=== PATIENT | female | born 1965 | race Caucasian/White ===

== ENCOUNTER → 2019-01-02 | Outpatient (CLI) | payer OTHER ==
[2019-01-02 21:00] LABS: Protein, Urine Random 16.6 mg/dL (0.0-11.9)
== END | disposition home or self-care (01) ==
LOC: LAB 18:51 → LAB SHORT 18:51
PROVIDERS: Internal Medicine
DX: N18.3 Chronic kidney disease, stage 3 (moderate) (principal)
CPT/HCPCS: 82570; 84156

== ENCOUNTER 2020-10-31 12:07 | Emergency (ER) | payer OTHER ==
[~2020-10-31] VITALS: Ht 160 cm; Wt 74.8 kg
[2020-10-31] MEDS ORDERED: ACYCLOVIR400 MG PO (15:00)
[2020-10-31] MEDS ORDERED: FLUO10 PO (15:00)
[2020-10-31] MEDS ORDERED: IMITREX100 MG PO (15:01)
[2020-10-31] MEDS ORDERED: Prinivil10 MG PO (15:03)
[2020-10-31] MEDS ORDERED: Lamotrigine25 MG PO (15:03)
[2020-10-31] MEDS ORDERED: OMEP20ER PO (15:04)
[2020-10-31] MEDS ORDERED: ALBU90OI INH (15:04)
[2020-10-31] MEDS ORDERED: AMLO5 PO (15:05)
[2020-10-31] MEDS ORDERED: Hydroxyzine HCl50 MG PO (15:06)
[2020-10-31] MEDS ORDERED: LAMICTAL200 MG PO (15:07)
[2020-10-31] MEDS ORDERED: IBU800 MG PO (15:16)
[2020-10-31] MEDS ORDERED: Percocet 5-3251 EACH PO (15:16)
== END 2020-10-31 16:40 | disposition home or self-care (01) ==
LOC: ER 12:07
DX: S52.122A Displaced fracture of head of left radius, initial encounter for closed fracture (principal); Z79.899 Other long term (current) drug therapy; X50.1XXA Overexertion from prolonged static or awkward postures, initial encounter
CPT/HCPCS: 29125; 73030; 73070; 73200; 96374-59; 96376-59; 99283-25; A9270; J3010

== ENCOUNTER 2020-11-24 00:36 | Day surgery (SDC) | payer OTHER ==
[~2020-11-24] VITALS: Wt 76.4 kg
[~2020-11-24 00:36] MED LIST: ACYCLOVIR400 MG PO; ALBU90OI INH; AMLO5 PO; FLUO10 PO; Hydroxyzine HCl50 MG PO; IBU800 MG PO; IMITREX100 MG PO; LAMICTAL200 MG PO; Lamotrigine25 MG PO; OMEP20ER PO; Percocet 5-3251 EACH PO; Prinivil10 MG PO
[2020-11-24 14:51] LABS: BASOPHILS ABSOLUTE AUTO 0.03 K/mm3 (0.00-0.23); BASOPHILS PERCENT AUTO 0 % (0-2); EOSINOPHILS ABSOLUTE AUTO 0.19 K/mm3 (0.00-0.68); EOSINOPHILS PERCENT AUTO 2 % (0-6); Hematocrit 29.5 % (33.0-51.0); Hemoglobin 9.5 g/dL (11.5-16.0); IMMATURE GRAN ABSOLUTE AUTO 0.08 K/mm3 (0.00-0.10); IMMATURE GRAN PERCENT AUTO 1 % (0-1); LYMPHOCYTES ABSOLUTE AUTO 1.38 K/mm3 (0.84-5.20); LYMPHOCYTES PERCENT AUTO 16 % (21-46); MONOCYTES ABSOLUTE AUTO 0.77 K/mm3 (0.16-1.47); MONOCYTES PERCENT AUTO 9 % (4-13); Mean Corpuscular HGB 28.7 pg (26.0-34.0); Mean Corpuscular HGB Conc 32.2 g/dL (31.5-36.5); Mean Corpuscular Volume 89 fL (80-100); Mean Platelet Volume 9.2 fL (9.1-12.4); NEUTROPHILS ABSOLUTE AUTO 6.03 K/mm3 (1.96-9.15); NEUTROPHILS PERCENT AUTO 71 % (41-73); Platelet Count 371 K/mm3 (150-400); RDW Coefficient Variation 14.1 % (11.7-14.2); RDW Standard Deviation 45.3 fL (35.1-46.3); Red Blood Cell Count 3.31 M/mm3 (3.80-5.20); White Blood Cell Count 8.48 K/mm3 (4.00-11.30)
[2020-11-24] MEDS ORDERED: OXYC10TA19 PO (15:09)
[2020-11-24] MEDS ORDERED: ASPI325 PO (15:12)
[2020-11-24] MEDS ORDERED: PROM25 PO (15:12)
[2020-11-24 15:25] LABS: Alanine Aminotransfer (ALT/SGP 50 U/L (12-78); Albumin/Globulin Ratio 0.8 (0.8-1.8); Alk Phos 273 U/L (50-136); Anion Gap 7 mmol/L (6-16); Aspartate Aminotrans (AST/SGOT 21 U/L (12-37); Bilirubin, Total 0.3 mg/dL (0.1-1.0); Blood Urea Nitrogen 10 mg/dL (8-24); Bun/Creatinine Ratio 9.6 (12.0-20.0); CO2, Blood 26 mmol/L (21-32); Calcium, Blood 8.7 mg/dL (8.5-10.1); Chloride, Blood 105 mmol/L (98-108); Creatinine, Blood 1.04 mg/dL (0.40-1.00); Globulin, Blood 3.8 g/dL (2.2-4.0); Glomerular Filtration Rate 58 (60-); Glucose, Blood 92 mg/dL (70-99); Potassium, Blood 3.7 mmol/L (3.5-5.5); Sodium, Blood 138 mmol/L (136-145); Total Protein, Blood 6.8 g/dL (6.4-8.2); Vancomycin, Trough 13.4 ug/mL (5.0-10.0)
== END 2020-11-24 17:41 | disposition home or self-care (01) ==
LOC: ATC 00:36
PROVIDERS: Internal Medicine Infectious Disease
DX: M00.9 Pyogenic arthritis, unspecified (principal); Z88.5 Allergy status to narcotic agent
CPT/HCPCS: 80053; 80202; 85025; 85651; 86140; 96365; 96366; J3370; J7050

== ENCOUNTER 2020-11-25 08:54 | Day surgery (SDC) | payer OTHER ==
[~2020-11-25 08:54] MED LIST changes: +ASPI325 PO; +OXYC10TA19 PO; +PROM25 PO
== END 2020-11-25 17:22 | disposition home or self-care (01) ==
LOC: ATC 08:54
DX: M00.022 Staphylococcal arthritis, left elbow (principal); B95.62 Methicillin resistant Staphylococcus aureus infection as the cause of diseases classified elsewhere
CPT/HCPCS: 96365; 96366; J3370; J7050

== ENCOUNTER 2020-11-26 00:42 | Day surgery (SDC) | payer OTHER ==
[2020-11-26 15:27] LABS: Creatinine, Blood 1.42 mg/dL (0.40-1.00)
== END 2020-11-26 17:32 | disposition home or self-care (01) ==
LOC: ATC 00:42
PROVIDERS: Internal Medicine Infectious Disease
DX: M00.022 Staphylococcal arthritis, left elbow (principal); B95.62 Methicillin resistant Staphylococcus aureus infection as the cause of diseases classified elsewhere
CPT/HCPCS: 36415; 80202; 82565; 96365; 96366; J3370; J7050

== ENCOUNTER 2020-11-27 00:36 | Day surgery (SDC) | payer OTHER | END 2020-11-27 16:21 | disposition home or self-care (01) | LOC: ATC 00:36 | DX: M00.022 Staphylococcal arthritis, left elbow (principal); B95.62 Methicillin resistant Staphylococcus aureus infection as the cause of diseases classified elsewhere; Z88.5 Allergy status to narcotic agent; Z95.828 Presence of other vascular implants and grafts | CPT/HCPCS: 96365; 96366; J3370; J7050 ==

== ENCOUNTER 2020-11-29 00:24 | Day surgery (SDC) | payer OTHER | END 2020-11-30 23:10 | disposition home or self-care (01) | LOC: ATC 00:24 | DX: M00.022 Staphylococcal arthritis, left elbow (principal); B95.62 Methicillin resistant Staphylococcus aureus infection as the cause of diseases classified elsewhere; Z88.5 Allergy status to narcotic agent; Z95.828 Presence of other vascular implants and grafts | CPT/HCPCS: J3370; J7050 ==

== ENCOUNTER 2020-11-30 00:07 | Day surgery (SDC) | payer OTHER | END 2020-11-30 23:10 | disposition home or self-care (01) | LOC: ATC 00:07 | DX: M00.022 Staphylococcal arthritis, left elbow (principal); B95.62 Methicillin resistant Staphylococcus aureus infection as the cause of diseases classified elsewhere; Z88.5 Allergy status to narcotic agent | CPT/HCPCS: J3370; J7050 ==

== ENCOUNTER 2020-12-10 02:07 | Day surgery (SDC) | payer OTHER | END 2020-12-10 15:40 | disposition home or self-care (01) | LOC: ATC 02:07 | DX: M00.0 Staphylococcal arthritis and polyarthritis (principal); B95.62 Methicillin resistant Staphylococcus aureus infection as the cause of diseases classified elsewhere; Z98.890 Other specified postprocedural states | CPT/HCPCS: 96365; 96366; J3370; J7050 ==

== ENCOUNTER 2020-12-11 01:52 | Day surgery (SDC) | payer OTHER | END 2020-12-11 15:09 | disposition home or self-care (01) | LOC: ATC 01:52 | DX: M00.0 Staphylococcal arthritis and polyarthritis (principal); B95.7 Other staphylococcus as the cause of diseases classified elsewhere | CPT/HCPCS: 96365; 96366; J3370; J7050 ==

== ENCOUNTER 2020-12-12 00:43 | Day surgery (SDC) | payer OTHER ==
[2020-12-12 14:24] LABS: Vancomycin, Trough 37.1 ug/mL (5.0-10.0)
--- NOTE | 2020-12-12 14:30 | NUR ---
REC'D A CALL FROM DWIGHT, PHARMACIST. PT'S VANCO LEVEL AND CREATININE ARE ELEVATED. HOLD DOSE TODAY AND RE DRAW LABS TOMORROW. PT ENCOURAGED TO DRINK WATER AND WILL RETURN TOMORROW FOR ANOTHER LAB AND POSSIBLE DOSE BASED ON HER LAB VALUES.
== END 2020-12-12 14:30 | disposition home or self-care (01) ==
LOC: ATC 00:43
PROVIDERS: Internal Medicine Infectious Disease
DX: M00.022 Staphylococcal arthritis, left elbow (principal); B95.62 Methicillin resistant Staphylococcus aureus infection as the cause of diseases classified elsewhere; Z98.890 Other specified postprocedural states; Z88.5 Allergy status to narcotic agent
CPT/HCPCS: 36415; 80202; 82565; 99211

== ENCOUNTER 2020-12-13 13:23 | Day surgery (SDC) | payer OTHER ==
[2020-12-13 14:07] LABS: Creatinine, Blood 2.98 mg/dL (0.40-1.00); Vancomycin, Random 24.1 ug/mL
--- NOTE | 2020-12-13 14:24 | NUR ---
SPOKE WITH PHARMACIST, DWIGHT, RE: VANCO TROUGH 24 AND CREAT 2.98. HOLD VANCO TODAY, REDRAW RANDOM VANCO LEVEL AND CREAT TOMORROWPER DWIGHT. INSTRUCTED PT ON RESULTS, SHE VOICED UNDERSTANDING. SHE WILL RETURN TOMORROW.
== END 2020-12-13 14:27 | disposition home or self-care (01) ==
LOC: ATC 13:23
PROVIDERS: Internal Medicine Infectious Disease
DX: M00.022 Staphylococcal arthritis, left elbow (principal); B95.62 Methicillin resistant Staphylococcus aureus infection as the cause of diseases classified elsewhere; Z88.5 Allergy status to narcotic agent; Z95.828 Presence of other vascular implants and grafts
CPT/HCPCS: 36416; 80202; 82565; 96523

== ENCOUNTER 2020-12-14 00:18 | Day surgery (SDC) | payer OTHER ==
[2020-12-14 16:21] LABS: Creatinine, Blood 2.51 mg/dL (0.40-1.00); Vancomycin, Random 16.1 ug/mL
--- NOTE | 2020-12-14 17:54 | NUR ---
PT VERY AGITATED ON ADMIT TO ROOM. PT CRYING AND VERY AGITATED. MOVING AROUND IN THE CHAIR. PT WENT TO BUD TO A DR APPT AND SHE WAS NOT ON THE DR'S BOOKS. BROTHER VERY ANGRY WITH THIS AND TOOK IT OUT ON PT.
== END 2020-12-14 17:41 | disposition home or self-care (01) ==
LOC: ATC 00:18
PROVIDERS: Internal Medicine Infectious Disease
DX: M00.022 Staphylococcal arthritis, left elbow (principal); B95.62 Methicillin resistant Staphylococcus aureus infection as the cause of diseases classified elsewhere; Z88.5 Allergy status to narcotic agent; Z96.622 Presence of left artificial elbow joint
CPT/HCPCS: 80202; 82565; 96365; J3370

== ENCOUNTER 2020-12-15 00:44 | Day surgery (SDC) | payer OTHER ==
[2020-12-15 15:04] LABS: Vancomycin, Random 19.3 ug/mL
--- NOTE | 2020-12-15 15:32 | NUR ---
PER PHARMACIST MARISA, NO DOSE OF VANCO FOR TODAY. WILL RECIEVE NEW ORDER FOR VANCO RANDOM TOMORROW.
== END 2020-12-15 15:18 | disposition home or self-care (01) ==
LOC: ATC 00:44
PROVIDERS: Internal Medicine Infectious Disease
DX: M86.171 Other acute osteomyelitis, right ankle and foot (principal); M00.9 Pyogenic arthritis, unspecified; I10 Essential (primary) hypertension; E11.621 Type 2 diabetes mellitus with foot ulcer; L97.519 Non-pressure chronic ulcer of other part of right foot with unspecified severity; Z88.1 Allergy status to other antibiotic agents; Z88.8 Allergy status to other drugs, medicaments and biological substances; Z79.4 Long term (current) use of insulin; Z79.899 Other long term (current) drug therapy
CPT/HCPCS: 36415; 80202; 82565

== ENCOUNTER 2020-12-16 00:19 | Day surgery (SDC) | payer OTHER ==
[2020-12-16 13:53] LABS: BASOPHILS ABSOLUTE AUTO 0.06 K/mm3 (0.00-0.23); BASOPHILS PERCENT AUTO 1 % (0-2); EOSINOPHILS ABSOLUTE AUTO 0.41 K/mm3 (0.00-0.68); EOSINOPHILS PERCENT AUTO 10 % (0-6); Hematocrit 33.9 % (33.0-51.0); Hemoglobin 10.9 g/dL (11.5-16.0); IMMATURE GRAN ABSOLUTE AUTO 0.02 K/mm3 (0.00-0.10); IMMATURE GRAN PERCENT AUTO 1 % (0-1); LYMPHOCYTES ABSOLUTE AUTO 1.35 K/mm3 (0.84-5.20); LYMPHOCYTES PERCENT AUTO 31 % (21-46); MONOCYTES ABSOLUTE AUTO 0.44 K/mm3 (0.16-1.47); MONOCYTES PERCENT AUTO 10 % (4-13); Mean Corpuscular HGB 28.5 pg (26.0-34.0); Mean Corpuscular HGB Conc 32.2 g/dL (31.5-36.5); Mean Corpuscular Volume 89 fL (80-100); Mean Platelet Volume 9.6 fL (9.1-12.4); NEUTROPHILS ABSOLUTE AUTO 2.04 K/mm3 (1.96-9.15); NEUTROPHILS PERCENT AUTO 47 % (41-73); Platelet Count 319 K/mm3 (150-400); RDW Coefficient Variation 14.5 % (11.7-14.2); RDW Standard Deviation 46.3 fL (35.1-46.3); Red Blood Cell Count 3.83 M/mm3 (3.80-5.20); White Blood Cell Count 4.32 K/mm3 (4.00-11.30)
[2020-12-16 14:09] LABS: Alanine Aminotransfer (ALT/SGP 13 U/L (12-78); Albumin, Blood 3.4 g/dL (3.4-5.0); Albumin/Globulin Ratio 0.9 (0.8-1.8); Alk Phos 154 U/L (50-136); Anion Gap 9 mmol/L (6-16); Aspartate Aminotrans (AST/SGOT 5 U/L (12-37); Bilirubin, Total 0.2 mg/dL (0.1-1.0); Blood Urea Nitrogen 21 mg/dL (8-24); CO2, Blood 18 mmol/L (21-32); Calcium, Blood 8.5 mg/dL (8.5-10.1); Chloride, Blood 114 mmol/L (98-108); Creatinine, Blood 1.75 mg/dL (0.40-1.00); Globulin, Blood 3.7 g/dL (2.2-4.0); Glomerular Filtration Rate 32 (60-); Glucose, Blood 116 mg/dL (70-99); Potassium, Blood 3.9 mmol/L (3.5-5.5); Sodium, Blood 141 mmol/L (136-145); Total Protein, Blood 7.1 g/dL (6.4-8.2); Vancomycin, Trough 11.1 ug/mL (5.0-10.0)
== END 2020-12-16 16:18 | disposition home or self-care (01) ==
LOC: ATC 00:19
PROVIDERS: Internal Medicine Infectious Disease
DX: M86.171 Other acute osteomyelitis, right ankle and foot (principal); M00.9 Pyogenic arthritis, unspecified; I10 Essential (primary) hypertension; E11.621 Type 2 diabetes mellitus with foot ulcer; L97.519 Non-pressure chronic ulcer of other part of right foot with unspecified severity; Z88.1 Allergy status to other antibiotic agents; Z88.5 Allergy status to narcotic agent; Z88.8 Allergy status to other drugs, medicaments and biological substances; Z79.4 Long term (current) use of insulin; Z79.899 Other long term (current) drug therapy
CPT/HCPCS: 80053; 80202; 85025; 85651; 86140; 96365; 96366; J3370; J7050

== ENCOUNTER 2020-12-19 13:03 | Day surgery (SDC) | payer OTHER ==
[2020-12-19] MEDS ORDERED: VANCOMYCIN HCL1 G1 IV (13:57)
== END 2020-12-19 15:10 | disposition home or self-care (01) ==
LOC: ATC 13:03
DX: A41.9 Sepsis, unspecified organism (principal); A49.02 Methicillin resistant Staphylococcus aureus infection, unspecified site
CPT/HCPCS: 96365; 96366; J3370; J7050

== ENCOUNTER 2020-12-20 12:59 | Day surgery (SDC) | payer OTHER ==
[~2020-12-20 12:59] MED LIST changes: +VANCOMYCIN HCL1 G1 IV
--- NOTE | 2020-12-20 14:38 | NUR ---
PTS BP REMAINS HIGH. ASKED PT IF SHE COULD CALL HER PCP AND PT STATED SHE HAS NOT GOTTEN ONE YET. PT STATES SHE HAS NOT FELT WELL SINCE LAST WED. STATES SHE HAS A BAD HEADACHE AND ALL SHE WANTS TO DO IS SLEEP. TALKED WITH PT REGARDING GOING TO ER OR URGENT CARE IF SHE DOES NOT GET TO FEELING BETTER.
== END 2020-12-20 14:38 | disposition home or self-care (01) ==
LOC: ATC 12:59
DX: A41.9 Sepsis, unspecified organism (principal)
CPT/HCPCS: 96365; J3370

== ENCOUNTER 2020-12-22 03:40 | Day surgery (SDC) | payer OTHER | END 2020-12-22 14:56 | disposition home or self-care (01) | LOC: ATC 03:40 | DX: M00.022 Staphylococcal arthritis, left elbow (principal); B95.62 Methicillin resistant Staphylococcus aureus infection as the cause of diseases classified elsewhere; Z88.5 Allergy status to narcotic agent; Z95.828 Presence of other vascular implants and grafts | CPT/HCPCS: 96365; J3370 ==

== ENCOUNTER 2020-12-23 03:29 | Day surgery (SDC) | payer OTHER ==
--- NOTE | 2020-12-23 13:45 | NUR ---
TALKED WITH PT RE: HER ELEVATED BP AND RISKS ASSOCIATED WITH ELEVATED BP. sHE STATES HER BP HAS BEEN RUNNING HIGH RECENTLY. SHE REPORTS SHE FORGOT TO TAKE HER BP MEDS THIS MORNING. SHE ALSO REPORTS INCREASED STRESS THIS WEEK, HER FATHER'S CELE[employer] OF LIFE IS PLANNED FOR THIS COMING MONDAY.
== END 2020-12-23 14:26 | disposition home or self-care (01) ==
LOC: ATC 03:29
DX: M00.022 Staphylococcal arthritis, left elbow (principal); B95.62 Methicillin resistant Staphylococcus aureus infection as the cause of diseases classified elsewhere; Z88.5 Allergy status to narcotic agent
CPT/HCPCS: 96365; J3370

== ENCOUNTER 2020-12-24 00:20 | Day surgery (SDC) | payer OTHER ==
[2020-12-24 14:00] LABS: Creatinine, Blood 1.66 mg/dL (0.40-1.00); Vancomycin, Trough 13.4 ug/mL (5.0-10.0)
== END 2020-12-24 15:45 | disposition home or self-care (01) ==
LOC: ATC 00:20
PROVIDERS: Internal Medicine Infectious Disease
DX: M00.022 Staphylococcal arthritis, left elbow (principal); B95.62 Methicillin resistant Staphylococcus aureus infection as the cause of diseases classified elsewhere; Z88.5 Allergy status to narcotic agent
CPT/HCPCS: 80202; 82565; 96365; J3370

== ENCOUNTER 2020-12-25 00:17 | Day surgery (SDC) | payer OTHER | END 2020-12-25 14:26 | disposition home or self-care (01) | LOC: ATC 00:17 | DX: M00.022 Staphylococcal arthritis, left elbow (principal); B95.62 Methicillin resistant Staphylococcus aureus infection as the cause of diseases classified elsewhere; Z88.5 Allergy status to narcotic agent; Z95.828 Presence of other vascular implants and grafts | CPT/HCPCS: 96365; J3370 ==

== ENCOUNTER 2020-12-27 00:10 | Day surgery (SDC) | payer OTHER ==
[2020-12-27 14:26] LABS: BASOPHILS ABSOLUTE AUTO 0.06 K/mm3 (0.00-0.23); BASOPHILS PERCENT AUTO 1 % (0-2); EOSINOPHILS ABSOLUTE AUTO 0.25 K/mm3 (0.00-0.68); EOSINOPHILS PERCENT AUTO 5 % (0-6); Hematocrit 33.1 % (33.0-51.0); Hemoglobin 10.7 g/dL (11.5-16.0); IMMATURE GRAN ABSOLUTE AUTO 0.01 K/mm3 (0.00-0.10); IMMATURE GRAN PERCENT AUTO 0 % (0-1); LYMPHOCYTES PERCENT AUTO 26 % (21-46); MONOCYTES ABSOLUTE AUTO 0.51 K/mm3 (0.16-1.47); MONOCYTES PERCENT AUTO 11 % (4-13); Mean Corpuscular HGB 28.3 pg (26.0-34.0); Mean Corpuscular HGB Conc 32.3 g/dL (31.5-36.5); Mean Corpuscular Volume 88 fL (80-100); NEUTROPHILS ABSOLUTE AUTO 2.66 K/mm3 (1.96-9.15); NEUTROPHILS PERCENT AUTO 57 % (41-73); Platelet Count 281 K/mm3 (150-400); RDW Coefficient Variation 14.2 % (11.7-14.2); RDW Standard Deviation 45.4 fL (35.1-46.3); Red Blood Cell Count 3.78 M/mm3 (3.80-5.20); White Blood Cell Count 4.69 K/mm3 (4.00-11.30)
[2020-12-27 14:45] LABS: Albumin, Blood 3.7 g/dL (3.4-5.0); Albumin/Globulin Ratio 1.1 (0.8-1.8); Bilirubin, Total 0.4 mg/dL (0.1-1.0); Bun/Creatinine Ratio 13.4 (12.0-20.0); C-REACTIVE PROTEIN, EXT RANGE 3.26 mg/dL (0.000-0.300); Calcium, Blood 8.6 mg/dL (8.5-10.1); Creatinine, Blood 1.86 mg/dL (0.40-1.00); Globulin, Blood 3.5 g/dL (2.2-4.0); Potassium, Blood 3.8 mmol/L (3.5-5.5); Total Protein, Blood 7.2 g/dL (6.4-8.2)
--- NOTE | 2020-12-27 15:30 | NUR ---
TODAYS LABS FAXED TO DR. Sheng ROBERTS.
== END 2020-12-27 14:53 | disposition home or self-care (01) ==
LOC: ATC 00:10
PROVIDERS: Internal Medicine Infectious Disease
DX: M00.022 Staphylococcal arthritis, left elbow (principal); B95.62 Methicillin resistant Staphylococcus aureus infection as the cause of diseases classified elsewhere
CPT/HCPCS: 80053; 85025; 85651; 86140; 96365; J3370

== ENCOUNTER 2020-12-28 00:06 | Day surgery (SDC) | payer OTHER ==
--- NOTE | 2020-12-28 16:24 | NUR ---
PT DID NOT SHOW FOR HER APPOINTMENT IN THE [facility] TODAY.
== END 2020-12-28 23:01 | disposition home or self-care (01) ==
LOC: ATC 00:06
DX: M00.022 Staphylococcal arthritis, left elbow (principal); B95.62 Methicillin resistant Staphylococcus aureus infection as the cause of diseases classified elsewhere; Z88.5 Allergy status to narcotic agent; Z95.828 Presence of other vascular implants and grafts
CPT/HCPCS: J3370

== ENCOUNTER 2020-12-29 03:12 | Day surgery (SDC) | payer OTHER | END 2020-12-29 14:23 | disposition home or self-care (01) | LOC: ATC 03:12 | DX: M00.9 Pyogenic arthritis, unspecified (principal); Z79.4 Long term (current) use of insulin; Z79.899 Other long term (current) drug therapy; Z88.5 Allergy status to narcotic agent | CPT/HCPCS: 96365; J3370 ==

== ENCOUNTER 2020-12-30 03:15 | Day surgery (SDC) | payer OTHER | END 2020-12-30 14:30 | disposition home or self-care (01) | LOC: ATC 03:15 | DX: M00.022 Staphylococcal arthritis, left elbow (principal); B95.62 Methicillin resistant Staphylococcus aureus infection as the cause of diseases classified elsewhere; Z88.5 Allergy status to narcotic agent; Z95.828 Presence of other vascular implants and grafts | CPT/HCPCS: 96365; J3370 ==

== ENCOUNTER 2020-12-31 04:06 | Day surgery (SDC) | payer OTHER ==
[~2020-12-31] VITALS: Ht 160 cm; Wt 76.4 kg
[2020-12-31 13:40] LABS: BASOPHILS ABSOLUTE AUTO 0.08 K/mm3 (0.00-0.23); BASOPHILS PERCENT AUTO 2 % (0-2); EOSINOPHILS ABSOLUTE AUTO 0.35 K/mm3 (0.00-0.68); EOSINOPHILS PERCENT AUTO 7 % (0-6); Hematocrit 36.1 % (33.0-51.0); Hemoglobin 11.6 g/dL (11.5-16.0); IMMATURE GRAN ABSOLUTE AUTO 0.01 K/mm3 (0.00-0.10); IMMATURE GRAN PERCENT AUTO 0 % (0-1); LYMPHOCYTES ABSOLUTE AUTO 1.28 K/mm3 (0.84-5.20); LYMPHOCYTES PERCENT AUTO 26 % (21-46); MONOCYTES PERCENT AUTO 10 % (4-13); Mean Corpuscular HGB 28.4 pg (26.0-34.0); Mean Corpuscular HGB Conc 32.1 g/dL (31.5-36.5); Mean Corpuscular Volume 88 fL (80-100); Mean Platelet Volume 9.7 fL (9.1-12.4); NEUTROPHILS ABSOLUTE AUTO 2.75 K/mm3 (1.96-9.15); NEUTROPHILS PERCENT AUTO 55 % (41-73); Platelet Count 303 K/mm3 (150-400); RDW Coefficient Variation 13.9 % (11.7-14.2); RDW Standard Deviation 45.2 fL (35.1-46.3); Red Blood Cell Count 4.09 M/mm3 (3.80-5.20); White Blood Cell Count 4.97 K/mm3 (4.00-11.30)
[2020-12-31 13:56] LABS: C-REACTIVE PROTEIN, EXT RANGE 0.336 mg/dL (0.000-0.300)
[2020-12-31 13:57] LABS: Albumin, Blood 3.8 g/dL (3.4-5.0); Albumin/Globulin Ratio 1.1 (0.8-1.8); Bilirubin, Total 0.2 mg/dL (0.1-1.0); Bun/Creatinine Ratio 16.2 (12.0-20.0); Calcium, Blood 8.8 mg/dL (8.5-10.1); Creatinine, Blood 1.48 mg/dL (0.40-1.00); Globulin, Blood 3.5 g/dL (2.2-4.0); Potassium, Blood 4.8 mmol/L (3.5-5.5); Total Protein, Blood 7.3 g/dL (6.4-8.2)
[2020-12-31 14:32] LABS: Creatinine, Blood 1.47 mg/dL (0.40-1.00); Vancomycin, Trough 15.1 ug/mL (5.0-10.0)
--- NOTE | 2020-12-31 14:59 | NUR ---
TODAYS LABS FAXED TO DR. ROBERTS'S OFFICE. ALSO INFORMED STAFF THAT PATIENT HAS MISSED 14 APPOINTMENTS FOR VANCO (PER OUR PHARMACY). STAFF TO SPEAK WITH DR. ROBERTS AND CALL BACK.
== END 2020-12-31 15:43 | disposition home or self-care (01) ==
LOC: ATC 04:06
PROVIDERS: Internal Medicine Infectious Disease
DX: M00.022 Staphylococcal arthritis, left elbow (principal); B95.62 Methicillin resistant Staphylococcus aureus infection as the cause of diseases classified elsewhere; Z88.5 Allergy status to narcotic agent
CPT/HCPCS: 80053; 80202; 82565; 85025; 85651; 86140; 96365; J3370

== ENCOUNTER 2021-01-01 00:47 | Day surgery (SDC) | payer OTHER ==
[2021-01-02] MEDS ORDERED: IBUP800 PO (13:38)
== END 2021-01-01 14:41 | disposition home or self-care (01) ==
LOC: ATC 00:47
DX: M00.022 Staphylococcal arthritis, left elbow (principal); B95.62 Methicillin resistant Staphylococcus aureus infection as the cause of diseases classified elsewhere
CPT/HCPCS: 96365; J3370

== ENCOUNTER 2021-01-02 13:00 | Day surgery (SDC) | payer OTHER ==
[2021-01-02] MEDS ORDERED: IBUP800 PO (13:38)
--- NOTE | 2021-01-02 14:36 | NUR ---
ADVISED PT SHE NEEDS TO BE SEEN IN THE ER FOR EXTREMELY ELEVATED BP'S. PT REFUSES TO BE SEEN IN ER. PT STATES SHE TOOK A BP MED PRIOR TO HER APPT TODAY AND THAT SHE RUNS ELEVATED LIKE THIS. PT STATES SHE SEES HER PCP SOON TO GET HER HOME MEDS FIGURED OUT. DISCUSSED STROKE RISK AND SYMPTOMS AND NEED FOR AN ER DR TO SEE AND TREAT HER TODAY, BUT PT CONTINUES TO REFUSE TREATMENT STATING SHE IS FEELING FINE AND SHE PROMISES TO NOT MISS HER PCP APPT. PT VERBALLY ADVISED THAT SHE IS LEAVING AGAINST MY MEDICAL ADVICE AND PT STATES THAT SHE UNDERSTANDS THE RISKS.
== END 2021-01-02 14:36 | disposition home or self-care (01) ==
LOC: ATC 13:00
DX: M00.022 Staphylococcal arthritis, left elbow (principal); B95.62 Methicillin resistant Staphylococcus aureus infection as the cause of diseases classified elsewhere; Z88.5 Allergy status to narcotic agent; Z95.828 Presence of other vascular implants and grafts
CPT/HCPCS: 96365; J3370

== ENCOUNTER 2021-01-03 12:55 | Day surgery (SDC) | payer OTHER ==
[~2021-01-03 12:55] MED LIST changes: +IBUP800 PO
[2021-01-03 14:04] LABS: Creatinine, Blood 1.85 mg/dL (0.40-1.00); Vancomycin, Trough 20.2 ug/mL (5.0-10.0)
== END 2021-01-03 22:36 | disposition home or self-care (01) ==
LOC: ATC 12:55
PROVIDERS: Internal Medicine Infectious Disease
DX: M00.022 Staphylococcal arthritis, left elbow (principal); B95.62 Methicillin resistant Staphylococcus aureus infection as the cause of diseases classified elsewhere; Z88.5 Allergy status to narcotic agent
CPT/HCPCS: 80202; 82565; 96365; J3370

== ENCOUNTER 2021-01-04 00:04 | Day surgery (SDC) | payer OTHER | END 2021-01-05 23:44 | disposition home or self-care (01) | LOC: ATC 00:04 | DX: M00.022 Staphylococcal arthritis, left elbow (principal); B95.62 Methicillin resistant Staphylococcus aureus infection as the cause of diseases classified elsewhere; Z88.5 Allergy status to narcotic agent; Z95.828 Presence of other vascular implants and grafts | CPT/HCPCS: J3370 ==

== ENCOUNTER 2021-01-05 13:17 | Day surgery (SDC) | payer OTHER | END 2021-01-05 14:41 | disposition home or self-care (01) | LOC: ATC 13:17 | DX: M00.9 Pyogenic arthritis, unspecified (principal); Z88.5 Allergy status to narcotic agent; Z79.4 Long term (current) use of insulin; Z79.899 Other long term (current) drug therapy | CPT/HCPCS: 96365; J3370 ==

== ENCOUNTER 2021-01-07 05:38 | Day surgery (SDC) | payer OTHER | END 2021-01-07 22:46 | disposition home or self-care (01) | LOC: ATC 05:38 | DX: M00.022 Staphylococcal arthritis, left elbow (principal); B95.62 Methicillin resistant Staphylococcus aureus infection as the cause of diseases classified elsewhere ==

== ENCOUNTER 2021-01-08 04:42 | Day surgery (SDC) | payer OTHER ==
[2021-01-08 14:00] LABS: BASOPHILS ABSOLUTE AUTO 0.07 K/mm3 (0.00-0.23); BASOPHILS PERCENT AUTO 1 % (0-2); EOSINOPHILS ABSOLUTE AUTO 0.35 K/mm3 (0.00-0.68); EOSINOPHILS PERCENT AUTO 7 % (0-6); Hematocrit 33.3 % (33.0-51.0); IMMATURE GRAN ABSOLUTE AUTO 0.03 K/mm3 (0.00-0.10); IMMATURE GRAN PERCENT AUTO 1 % (0-1); LYMPHOCYTES ABSOLUTE AUTO 1.73 K/mm3 (0.84-5.20); LYMPHOCYTES PERCENT AUTO 33 % (21-46); MONOCYTES PERCENT AUTO 8 % (4-13); Mean Corpuscular HGB 28.9 pg (26.0-34.0); Mean Corpuscular Volume 88 fL (80-100); NEUTROPHILS ABSOLUTE AUTO 2.63 K/mm3 (1.96-9.15); NEUTROPHILS PERCENT AUTO 51 % (41-73); Platelet Count 272 K/mm3 (150-400); RDW Coefficient Variation 14.2 % (11.7-14.2); RDW Standard Deviation 45.8 fL (35.1-46.3); White Blood Cell Count 5.21 K/mm3 (4.00-11.30)
[2021-01-08 14:16] LABS: Alanine Aminotransfer (ALT/SGP 49 U/L (12-78); Albumin, Blood 3.6 g/dL (3.4-5.0); Albumin/Globulin Ratio 1.1 (0.8-1.8); Alk Phos 131 U/L (50-136); Anion Gap 7 mmol/L (6-16); Aspartate Aminotrans (AST/SGOT 24 U/L (12-37); Bilirubin, Total 0.2 mg/dL (0.1-1.0); Blood Urea Nitrogen 17 mg/dL (8-24); Bun/Creatinine Ratio 13.3 (12.0-20.0); C-REACTIVE PROTEIN, EXT RANGE <0.290 mg/dL (0.000-0.300); CO2, Blood 22 mmol/L (21-32); Calcium, Blood 8.5 mg/dL (8.5-10.1); Chloride, Blood 112 mmol/L (98-108); Creatinine, Blood 1.28 mg/dL (0.40-1.00); Globulin, Blood 3.3 g/dL (2.2-4.0); Glomerular Filtration Rate 46 (60-); Glucose, Blood 132 mg/dL (70-99); Potassium, Blood 3.3 mmol/L (3.5-5.5); Sodium, Blood 141 mmol/L (136-145); Total Protein, Blood 6.9 g/dL (6.4-8.2)
--- NOTE | 2021-01-08 15:07 | NUR ---
LABS FAXED TO DOCTOR
== END 2021-01-08 14:50 | disposition home or self-care (01) ==
LOC: ATC 04:42
PROVIDERS: Internal Medicine Infectious Disease
DX: M00.022 Staphylococcal arthritis, left elbow (principal); B95.62 Methicillin resistant Staphylococcus aureus infection as the cause of diseases classified elsewhere
CPT/HCPCS: 36415; 80053; 85025; 85651; 86140; 96365; J3370

== ENCOUNTER 2021-01-09 12:56 | Day surgery (SDC) | payer OTHER | END 2021-01-09 14:40 | disposition home or self-care (01) | LOC: ATC 12:56 | DX: M00.022 Staphylococcal arthritis, left elbow (principal); B95.62 Methicillin resistant Staphylococcus aureus infection as the cause of diseases classified elsewhere; Z88.5 Allergy status to narcotic agent | CPT/HCPCS: 96365; J3370 ==

== ENCOUNTER 2021-01-10 13:13 | Day surgery (SDC) | payer OTHER | END 2021-01-10 23:00 | disposition home or self-care (01) | LOC: ATC 13:13 | DX: M00.022 Staphylococcal arthritis, left elbow (principal); B95.62 Methicillin resistant Staphylococcus aureus infection as the cause of diseases classified elsewhere | CPT/HCPCS: 96365; J3370 ==

== ENCOUNTER 2021-01-11 00:22 | Day surgery (SDC) | payer OTHER | END 2021-01-11 13:55 | disposition home or self-care (01) | LOC: ATC 00:22 | DX: M00.022 Staphylococcal arthritis, left elbow (principal); B95.62 Methicillin resistant Staphylococcus aureus infection as the cause of diseases classified elsewhere; Z88.5 Allergy status to narcotic agent | CPT/HCPCS: 96365; J0878 ==

== ENCOUNTER 2021-01-12 02:29 | Day surgery (SDC) | payer OTHER | END 2021-01-12 14:01 | disposition home or self-care (01) | LOC: ATC 02:29 | DX: M00.022 Staphylococcal arthritis, left elbow (principal); B95.62 Methicillin resistant Staphylococcus aureus infection as the cause of diseases classified elsewhere; Z88.5 Allergy status to narcotic agent; Z96.622 Presence of left artificial elbow joint | CPT/HCPCS: 96365; J0878 ==

== ENCOUNTER 2021-01-13 02:40 | Day surgery (SDC) | payer OTHER ==
[2021-01-13 14:39] LABS: BASOPHILS ABSOLUTE AUTO 0.06 K/mm3 (0.00-0.23); BASOPHILS PERCENT AUTO 1 % (0-2); EOSINOPHILS ABSOLUTE AUTO 0.29 K/mm3 (0.00-0.68); EOSINOPHILS PERCENT AUTO 4 % (0-6); Hematocrit 31.9 % (33.0-51.0); Hemoglobin 10.6 g/dL (11.5-16.0); IMMATURE GRAN ABSOLUTE AUTO 0.04 K/mm3 (0.00-0.10); IMMATURE GRAN PERCENT AUTO 1 % (0-1); LYMPHOCYTES PERCENT AUTO 30 % (21-46); MONOCYTES ABSOLUTE AUTO 0.55 K/mm3 (0.16-1.47); MONOCYTES PERCENT AUTO 8 % (4-13); Mean Corpuscular HGB 28.7 pg (26.0-34.0); Mean Corpuscular HGB Conc 33.2 g/dL (31.5-36.5); Mean Corpuscular Volume 86 fL (80-100); Mean Platelet Volume 10.1 fL (9.1-12.4); NEUTROPHILS ABSOLUTE AUTO 3.69 K/mm3 (1.96-9.15); NEUTROPHILS PERCENT AUTO 56 % (41-73); Platelet Count 246 K/mm3 (150-400); RDW Coefficient Variation 14.6 % (11.7-14.2); RDW Standard Deviation 46.4 fL (35.1-46.3); Red Blood Cell Count 3.69 M/mm3 (3.80-5.20); White Blood Cell Count 6.63 K/mm3 (4.00-11.30)
[2021-01-13 15:02] LABS: Albumin, Blood 3.6 g/dL (3.4-5.0); Albumin/Globulin Ratio 1.1 (0.8-1.8); Bilirubin, Total 0.3 mg/dL (0.1-1.0); Bun/Creatinine Ratio 13.9 (12.0-20.0); C-REACTIVE PROTEIN, EXT RANGE 0.77 mg/dL (0.000-0.300); Calcium, Blood 8.1 mg/dL (8.5-10.1); Creatine Kinase MB 1.6 ng/mL (0.0-3.6); Creatine Kinase MB Index 2.6 (0.0-4.0); Creatinine, Blood 1.15 mg/dL (0.40-1.00); Globulin, Blood 3.2 g/dL (2.2-4.0); Potassium, Blood 3.7 mmol/L (3.5-5.5); Total Protein, Blood 6.8 g/dL (6.4-8.2)
--- NOTE | 2021-01-13 17:13 | NUR ---
TODAYS LABS FAXED TO DR. ROBERTS.
== END 2021-01-13 14:35 | disposition home or self-care (01) ==
LOC: ATC 02:40
PROVIDERS: Internal Medicine Infectious Disease
DX: M00.022 Staphylococcal arthritis, left elbow (principal); B95.62 Methicillin resistant Staphylococcus aureus infection as the cause of diseases classified elsewhere; Z88.5 Allergy status to narcotic agent; Z79.2 Long term (current) use of antibiotics
CPT/HCPCS: 80053; 82550; 82553; 85025; 85651; 86140; 96365; J0878

== ENCOUNTER 2021-01-15 04:29 | Day surgery (SDC) | payer OTHER | END 2021-01-15 14:05 | disposition home or self-care (01) | LOC: ATC 04:29 | DX: M00.022 Staphylococcal arthritis, left elbow (principal); B95.62 Methicillin resistant Staphylococcus aureus infection as the cause of diseases classified elsewhere | CPT/HCPCS: 96365; J0878 ==

== ENCOUNTER 2021-01-16 12:56 | Day surgery (SDC) | payer OTHER | END 2021-01-16 14:24 | disposition home or self-care (01) | LOC: ATC 12:56 | DX: M00.022 Staphylococcal arthritis, left elbow (principal); B95.62 Methicillin resistant Staphylococcus aureus infection as the cause of diseases classified elsewhere; Z88.5 Allergy status to narcotic agent | CPT/HCPCS: 96365; J0878 ==

== ENCOUNTER 2021-01-17 00:21 | Day surgery (SDC) | payer OTHER | END 2021-01-17 14:14 | disposition home or self-care (01) | LOC: ATC 00:21 | DX: M00.022 Staphylococcal arthritis, left elbow (principal); B95.62 Methicillin resistant Staphylococcus aureus infection as the cause of diseases classified elsewhere; Z88.5 Allergy status to narcotic agent | CPT/HCPCS: 96365; J0878 ==

== ENCOUNTER 2021-01-18 00:07 | Day surgery (SDC) | payer OTHER ==
[2021-01-19] MEDS ORDERED: CUBICIN500 MG IV (14:14)
== END 2021-01-18 23:18 | disposition home or self-care (01) ==
LOC: ATC 00:07
DX: M00.022 Staphylococcal arthritis, left elbow (principal); B95.62 Methicillin resistant Staphylococcus aureus infection as the cause of diseases classified elsewhere; Z88.5 Allergy status to narcotic agent
CPT/HCPCS: J0878

== ENCOUNTER 2021-01-19 00:11 | Day surgery (SDC) | payer OTHER ==
[2021-01-19 13:58] LABS: BASOPHILS ABSOLUTE AUTO 0.06 K/mm3 (0.00-0.23); BASOPHILS PERCENT AUTO 1 % (0-2); EOSINOPHILS ABSOLUTE AUTO 0.22 K/mm3 (0.00-0.68); EOSINOPHILS PERCENT AUTO 5 % (0-6); Hematocrit 33.4 % (33.0-51.0); Hemoglobin 10.8 g/dL (11.5-16.0); IMMATURE GRAN PERCENT AUTO 0 % (0-1); LYMPHOCYTES ABSOLUTE AUTO 1.54 K/mm3 (0.84-5.20); LYMPHOCYTES PERCENT AUTO 33 % (21-46); MONOCYTES ABSOLUTE AUTO 0.48 K/mm3 (0.16-1.47); MONOCYTES PERCENT AUTO 10 % (4-13); Mean Corpuscular HGB 28.4 pg (26.0-34.0); Mean Corpuscular HGB Conc 32.3 g/dL (31.5-36.5); Mean Corpuscular Volume 88 fL (80-100); Mean Platelet Volume 10.4 fL (9.1-12.4); NEUTROPHILS ABSOLUTE AUTO 2.37 K/mm3 (1.96-9.15); NEUTROPHILS PERCENT AUTO 51 % (41-73); Platelet Count 293 K/mm3 (150-400); RDW Coefficient Variation 13.9 % (11.7-14.2); White Blood Cell Count 4.67 K/mm3 (4.00-11.30)
[2021-01-19] MEDS ORDERED: CUBICIN500 MG IV (14:14)
--- NOTE | 2021-01-19 14:15 | NUR ---
PT MISSED YESTERDAYS DOSE OF IV ANTIBIOTIC. PT STATES SHE IS SO TIRED AND SHE DID NOT WAKE UP UNTIL 1600.
[2021-01-19 14:19] LABS: C-REACTIVE PROTEIN, EXT RANGE 0.925 mg/dL (0.000-0.300)
[2021-01-19 14:20] LABS: Albumin, Blood 3.5 g/dL (3.4-5.0); Bilirubin, Total 0.3 mg/dL (0.1-1.0); Bun/Creatinine Ratio 21.4 (12.0-20.0); Calcium, Blood 8.8 mg/dL (8.5-10.1); Creatine Kinase MB 1.5 ng/mL (0.0-3.6); Creatine Kinase MB Index 3.3 (0.0-4.0); Creatinine, Blood 1.12 mg/dL (0.40-1.00); Globulin, Blood 3.6 g/dL (2.2-4.0); Potassium, Blood 4.2 mmol/L (3.5-5.5); Total Protein, Blood 7.1 g/dL (6.4-8.2)
== END 2021-01-19 14:32 | disposition home or self-care (01) ==
LOC: ATC 00:11
PROVIDERS: Internal Medicine Infectious Disease
DX: M00.022 Staphylococcal arthritis, left elbow (principal); B95.62 Methicillin resistant Staphylococcus aureus infection as the cause of diseases classified elsewhere; Z88.5 Allergy status to narcotic agent; Z95.828 Presence of other vascular implants and grafts
CPT/HCPCS: 80053; 82550; 82553; 85025; 85651; 86140; 96365; J0878

== ENCOUNTER 2021-01-20 04:58 | Day surgery (SDC) | payer OTHER ==
[~2021-01-20 04:58] MED LIST changes: +CUBICIN500 MG IV
== END 2021-01-20 22:53 | disposition home or self-care (01) ==
LOC: ATC 04:58
DX: M00.022 Staphylococcal arthritis, left elbow (principal); B95.62 Methicillin resistant Staphylococcus aureus infection as the cause of diseases classified elsewhere; Z88.5 Allergy status to narcotic agent; Z95.828 Presence of other vascular implants and grafts
CPT/HCPCS: J0878

== ENCOUNTER 2021-01-31 00:58 | Emergency (ER) | payer OTHER ==
[~2021-01-31] VITALS: Ht 160 cm; Wt 68.0 kg
== END 2021-01-31 02:22 | disposition home or self-care (01) ==
LOC: ER 00:58
DX: T82.42XA Displacement of vascular dialysis catheter, initial encounter (principal); F17.210 Nicotine dependence, cigarettes, uncomplicated; Z88.5 Allergy status to narcotic agent; Z79.899 Other long term (current) drug therapy
CPT/HCPCS: 99282

== ENCOUNTER 2023-04-10 12:01 | Emergency (ER) | payer OTHER ==
[~2023-04-10] VITALS: Ht 160 cm; Wt 59.0 kg
[2023-04-10 12:13] VITALS: BP 178/104
[2023-04-10] MEDS ORDERED: Mupirocin22 GM TOP (12:42)
== END 2023-04-10 12:50 | disposition home or self-care (01) ==
LOC: ER 12:01
DX: T24.131A Burn of first degree of right lower leg, initial encounter (principal); F17.210 Nicotine dependence, cigarettes, uncomplicated; Z88.5 Allergy status to narcotic agent; X17.XXXA Contact with hot engines, machinery and tools, initial encounter
CPT/HCPCS: 99282